=== PATIENT | female | born 1970 | race Caucasian/White ===

== ENCOUNTER → 2016-05-10 | Outpatient (CLI) | payer BC ==
[2016-05-10 19:55] LABS: Amorphous Sediment,Urine Rare /hpf; Appearance,Urine Cloudy (Clear); Bilirubin,Urine Negative (Negative); Glucose,Urine (UA) Negative (Negative); Ketones,Urine Trace (Negative); Leukocyte Esterase,Urine Moderate (Negative); Mucus,Urine Rare /hpf; Nitrite,Urine Negative (Negative); PH, Urine 5.5 (5.0-8.0); Particle Count 7702; Protein,Urine Negative (Negative); RBC,Urine 5 /hpf (0-5); Specific Gravity,Urine 1.015 (1.001-1.035); Squamous Epithelial Cell,Urine 8 /hpf (0-4); UA Billing (MACRO vs. MICRO) MICRO; Urobilinogen,Urine <2.0 mg/dL (<2.0); WBC,Urine 6 /hpf (0-5)
--- NOTE | 2016-05-11 08:59 | WWHP ---
DATE OF SERVICE: 05/10/2016 CHIEF COMPLAINT: The patient is here for her routine gynecologic exam. HPI: This is a 45-year-old G2, P2 with an LMP of 04/22/2016. Her is status post vasectomy. She says she had a UTI in February of 2016 and again in March. She says the first time it was treated, symptoms did not completely resolve. The second time she was treated in March, the symptoms did seem to completely resolve. She started having some urinary symptoms again one week ago. This consisted of urinary urgency, urinary frequency and slight odor of the urine. She denies dysuria. She says she voids immediately after sexual intercourse. She denies any vaginal discharge and denies fever. PAST MEDICAL HISTORY: Chronic hypertension, which improved with weight loss, intermittent tachycardia and seasonal allergies. MEDICATIONS: 1. Singulair 1 daily. 2. Claritin p.r.n. Allergies to COMPAZINE. PAST SURGICAL HISTORY: D&C 1995 and sinus surgery 1998. PAST TACK CLEANER HISTORY: Menses are regular every month. She has no history of STDs. SOCIAL HISTORY: She denies tobacco, alcohol, and drug use. 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 Family history is unchanged from the 2014 H&P. REVIEW OF SYSTEMS: She has lost about 18 pounds over the past 2 to 3 years. She has done this with diet and exercise. She denies respiratory, cardiac, or GI problems. PHYSICAL EXAM: Blood pressure 126/84. Height 5 feet 7 inches. Weight 172 pounds. Temperature 98.0, pulse 96. This a well-developed, well-nourished white female who is alert and oriented x3, in no acute distress. HEENT is within normal limits. NECK: Supple without mass or thyromegaly. CHEST AND LUNGS: Clear to auscultation. HEART: Regular rate and rhythm. Breasts are without mass or discharge. Axillary exam is negative adenopathy. BACK: Negative for CVA tenderness. ABDOMEN: Soft, nontender, without palpable masses. PELVIC EXAM: Normal external genitalia. Cervix and vagina reveal a small amount of mucus in the back of vagina. Cervix appears mildly inflamed. There is no cervical motion tenderness. There is no evidence of prolapse. The uterus is midposition, nongravid size and nontender. There are no palpable adnexal masses or tenderness. There is mild tenderness in the area of the bladder. Rectal exam is negative for mass or tenderness and is negative for occult blood. EXTREMITIES: Nontender. IMPRESSION: 1. A 45-year-old female with urinary urgency and frequency, probable cystitis. 2. History of recurrent urinary tract infections in the last 2 months. PLAN: 1. Pap smear was performed. 2. Self breast examination was discussed. 3. Bilateral screening mammogram will be due in 08/2016 and a slip was given to patient for this. 4. Clean-catch midstream UA with C&S has been obtained. 5. GC and Chlamydia testing from the cervix has been obtained. 6. We will empirically treat with Macrobid b.i.d. x7 days. If her symptoms are not improving, she will call and we will check the culture. 7. I have advised her to void after intercourse to see if this helps to prevent urinary tract infections. 8. If she continues to have recurrent UTIs, we can consider postcoital prophylactic antibiotics. 9. She will return in one year and p.r.n.
== END | disposition home or self-care (01) ==
LOC: WWCWWP 14:33
PROVIDERS: ATTEND Obstetrics & Gynecology
DX: R39.15 Urgency of urination (principal); R39.0 Extravasation of urine; Z11.3 Encounter for screening for infections with a predominantly sexual mode of transmission
CPT/HCPCS: 81001; 87086; 87491; 87591

== ENCOUNTER → 2016-05-27 | Outpatient (CLI) | payer BC ==
[2016-05-27 08:38] LABS: CH 31.4; CHCM 34.8; HCT 42.6 % (34.0-46.0); HDW 2.69; HGB 14.4 gm/dL (11.4-16.0); MCH 30.6 pg (25.0-35.0); MCHC 33.8 g/dL (31.0-37.0); MCV 90.7 fL (80.0-100.0); Mean Platelet Volume 6.5; RDW 13.2 % (11.5-15.5); WBC 4.4 k/uL (3.8-10.6)
[2016-05-27 08:47] LABS: Appearance,Urine Clear (Clear); Bilirubin,Urine Negative (Negative); Glucose,Urine (UA) Negative (Negative); Ketones,Urine Negative (Negative); Leukocyte Esterase,Urine Negative (Negative); Nitrite,Urine Negative (Negative); PH, Urine 6.5 (5.0-8.0); Protein,Urine Negative (Negative); Specific Gravity,Urine 1.001 (1.001-1.035); UA Billing (MACRO vs. MICRO) CHEM; Urobilinogen,Urine <2.0 mg/dL (<2.0)
[2016-05-27 08:51] LABS: ALT 32 U/L (9-52); AST 23 U/L (14-36); Alkaline Phosphatase 91 U/L (38-126); Anion Gap 11 mmol/L; Blood Urea Nitrogen 13 mg/dL (7-17); Calcium 9.3 mg/dL (8.4-10.2); Carbon Dioxide 24 mmol/L (22-30); Chloride 106 mmol/L (98-107); Cholesterol 180 mg/dL (<200); Glucose 89 mg/dL (74-99); HDL Cholesterol 66 mg/dL (40-60); Non-African American GFR(MDRD) >60 (>60 ml/min/1.73 sqM); Sodium 141 mmol/L (137-145); Total Bilirubin 0.6 mg/dL (0.2-1.3); Total Protein 7.4 g/dL (6.3-8.2); Triglycerides 51 mg/dL (<150)
== END | disposition home or self-care (01) ==
LOC: LABWHC1 08:00
PROVIDERS: ATTEND Internal Medicine
DX: Z00.00 Encounter for general adult medical examination without abnormal findings (principal); I11.9 Hypertensive heart disease without heart failure; E78.2 Mixed hyperlipidemia; R35.0 Frequency of micturition; R73.9 Hyperglycemia, unspecified
CPT/HCPCS: 36415; 80053; 80061; 81003; 83036; 84439; 84443; 85027

== ENCOUNTER → 2016-05-27 | Outpatient (CLI) | payer BC ==
--- NOTE | 2016-05-27 08:40 | US ---
EXAMINATION TYPE: US kidneys/renal and bladder DATE OF EXAM: 05/27/2016 7:37 AM COMPARISON: No previous CLINICAL HISTORY: N39.0 Frequent UTI. EXAM MEASUREMENTS: Right Kidney: 11.2 x 4.7 x 5.8 cm Left Kidney: 9.8 x 5.3 x 5.8 cm TECHNOLOGIST IMPRESSION: Right Kidney: small amount of fluid in renal pelvis, inferior pole limited by overlying bowel gas Left Kidney: wnl Bladder: wnl Bilateral Jets seen: yes There is no evidence for hydronephrosis at this point in time. No nephrolithiasis is seen. No christiano s are identified. The urinary bladder is anechoic. Bilateral ureteral jets are seen. Color flow sonography within the kidneys appears normal. Urinary bladder is sonolucent. Posterior wal l is normal. IMPRESSION: 1. Normal retroperitoneal ultrasound.
== END | disposition home or self-care (01) ==
LOC: RADUSWWP 07:35
PROVIDERS: ATTEND Internal Medicine
DX: N39.0 Urinary tract infection, site not specified (principal)
CPT/HCPCS: 76770

== ENCOUNTER → 2016-11-14 | Outpatient (CLI) | payer BC ==
--- NOTE | 2016-11-16 13:10 | MM ---
Reason for exam: screening (asymptomatic). Last mammogram was performed 8 months ago. Physical Findings: A clinical breast exam by your physician is recommended on an annual basis and results should be correlated with mammographic findings. MG Screening Mammo w CAD Bilateral CC and MLO view(s) were taken. Prior study comparison: March 14, 2016, right breast MG diagnostic mammo RT w CAD. September 08, 2015, right breast MG 3d work up w/cad RT. September 03, 2015, bilateral MG screening mammo w CAD. The breast tissue is heterogeneously dense. This may lower the sensitivity of mammography. No significant changes when compared with prior studies. ASSESSMENT: Benign, BI-RAD 2 RECOMMENDATION: Routine screening mammogram of both breasts in 1 year.
== END | disposition home or self-care (01) ==
LOC: RADMAMWWP 15:33
PROVIDERS: ATTEND Internal Medicine
DX: Z12.31 Encounter for screening mammogram for malignant neoplasm of breast (principal)

== ENCOUNTER → 2017-07-27 | Outpatient (CLI) | payer BC ==
[2017-07-27 09:32] LABS: HCT 42.4 % (34.0-46.0); HGB 14.3 gm/dL (11.4-16.0); MCH 29.6 pg (25.0-35.0); MCHC 33.6 g/dL (31.0-37.0); MCV 88.1 fL (80.0-100.0); Platelet Count 338 k/uL (150-450); RBC 4.82 m/uL (3.80-5.40); RDW 13.3 % (11.5-15.5); WBC 6.1 k/uL (3.8-10.6)
[2017-07-27 09:58] LABS: ALT 22 U/L (9-52); AST 21 U/L (14-36); Albumin 4.1 g/dL (3.5-5.0); Alkaline Phosphatase 89 U/L (38-126); Anion Gap 11 mmol/L; Blood Urea Nitrogen 10 mg/dL (7-17); Carbon Dioxide 25 mmol/L (22-30); Chloride 104 mmol/L (98-107); Cholesterol 190 mg/dL (<200); Glucose 92 mg/dL (74-99); HDL Cholesterol 78 mg/dL (40-60); LDL Cholesterol,Calculated 97 mg/dL (0-99); Potassium 4.2 mmol/L (3.5-5.1); Sodium 140 mmol/L (137-145); Total Bilirubin 0.4 mg/dL (0.2-1.3); Triglycerides 75 mg/dL (<150)
[2017-07-27 10:14] LABS: T4, Free (Free Thyroxine) 1.09 ng/dL (0.78-2.19)
== END | disposition home or self-care (01) ==
LOC: LABWHC1 08:58
PROVIDERS: ATTEND Internal Medicine
DX: Z00.00 Encounter for general adult medical examination without abnormal findings (principal); E78.2 Mixed hyperlipidemia; I11.9 Hypertensive heart disease without heart failure; K21.0 Gastro-esophageal reflux disease with esophagitis
CPT/HCPCS: 36415; 80053; 80061; 82272; 84439; 84443; 85027

== ENCOUNTER → 2018-02-19 | Outpatient (CLI) | payer BC ==
--- NOTE | 2018-02-20 10:31 | MM ---
Reason for exam: screening (asymptomatic). Last mammogram was performed 1 year and 3 months ago. Physical Findings: A clinical breast exam by your physician is recommended on an annual basis and results should be correlated with mammographic findings. MG 3D Screening Mammo W/Cad Bilateral CC and MLO view(s) were taken. Technologist: Alexandra Paris RT (R)(M) Prior study comparison: November 14, 2016, bilateral MG screening mammo w CAD. March 14, 2016, right breast MG diagnostic mammo RT w CAD. The breast tissue is heterogeneously dense. This may lower the sensitivity of mammography. There is chronic nodularity in the left breast but increased in number. ASSESSMENT: Incomplete: need additional imaging evaluation, BI-RAD 0 RECOMMENDATION: Ultrasound of the left breast. [facility] will attempt to contact patient to return for ultrasound.
== END | disposition home or self-care (01) ==
LOC: RADMAMWWP 09:13
PROVIDERS: ATTEND Internal Medicine
DX: Z12.31 Encounter for screening mammogram for malignant neoplasm of breast (principal)
CPT/HCPCS: 77063; 77067

== ENCOUNTER → 2018-03-01 | Outpatient (CLI) | payer BC ==
--- NOTE | 2018-03-02 10:51 | USB ---
Reason for exam: additional evaluation requested from abnormal screening. Physical Findings: Nurse did not find any significant physical abnormalities on exam. US Breast Workup LT Right complete breast ultrasound includes all four quadrants, the retroareolar region and axilla. Finding demonstrates several oval, cystic lesions measuring 5 x 3 x 5mm at 1 o'clock, 6 x 3 x 6mm at 10 o'clock, 5 x 2 x 4mm at 10 o'clock, 9 x 4 x 6mm at 11 o'clock and a 7 x 4 x 7mm oval, cystic lesion at 5 o'clock. These results were verbally communicated with the patient and result sheet given to the patient on 03/01/18. ASSESSMENT: Benign, BI-RAD 2 RECOMMENDATION: Return to routine screening mammogram schedule for both breasts.
== END | disposition home or self-care (01) ==
LOC: RADUSWWP 14:54
PROVIDERS: ATTEND Internal Medicine
DX: R92.8 Other abnormal and inconclusive findings on diagnostic imaging of breast (principal)

== ENCOUNTER → 2018-07-02 | Outpatient (CLI) | payer BC ==
[2018-07-02 16:10] LABS: Anion Gap 5.5 mmol/L (4.00-12.00); Calcium 9.1 mg/dL (8.7-10.3); Carbon Dioxide 24.5 mmol/L (21.6-31.8); LDL Cholesterol,Calculated 104.2 mg/dL (0.0-131.0); Potassium 4.1 mmol/L (3.5-5.5); VLDL Calculation 15.8 mg/dL (5.00-40.00)
== END ==
LOC: LABWHC1 08:49
PROVIDERS: ATTEND Internal Medicine Clinical Cardiac Electrophysiology
DX: I10 Essential (primary) hypertension (principal); E78.5 Hyperlipidemia, unspecified
CPT/HCPCS: 36415; 80048; 80061; 84443

== ENCOUNTER → 2019-10-30 | Outpatient (CLI) | payer BC ==
--- NOTE | 2019-10-31 10:42 | MM ---
Reason for exam: screening (asymptomatic). Last mammogram was performed 1 year and 8 months ago. Physical Findings: A clinical breast exam by your physician is recommended on an annual basis and results should be correlated with mammographic findings. MG 3D Screening Mammo W/Cad Bilateral CC and MLO view(s) were taken. Prior study comparison: February 19, 2018, bilateral MG 3d screening mammo w/cad. November 14, 2016, bilateral MG screening mammo w CAD. The breast tissue is heterogeneously dense. This may lower the sensitivity of mammography. No significant changes when compared with prior studies. ASSESSMENT: Benign, BI-RAD 2 RECOMMENDATION: Routine screening mammogram of both breasts in 1 year.
== END | disposition home or self-care (01) ==
LOC: RADMAMWWP 08:37
PROVIDERS: ATTEND Family Medicine
DX: Z12.31 Encounter for screening mammogram for malignant neoplasm of breast (principal)
CPT/HCPCS: 77063; 77067

== ENCOUNTER 2020-05-12 08:05 | Day surgery (SDC) | payer BC ==
[~2020-05-12 08:05] MED LIST: LACTATED RINGERS 1,000 ML IV SCH; LIDOCAINE 1% (10MG/ML) FOR IV START INTRADERMA PRN
[2020-05-12] MEDS ORDERED: LACTATED RINGERS 1,000 ML IV ONE ×2 (08:37)
[2020-05-12 08:50] VITALS: TEMP 98
[2020-05-12] MEDS ORDERED: PROPOFOL 10 MG/ML 20 ML VIAL IV ONE (08:56)
--- NOTE | 2020-05-12 08:59 | P.GSHP ---
History of Present Illness H&P Date: 05/12/20 Chief Complaint: Colon cancer screening 49-year-old female here today for colon cancer screening. Last colonoscopy 15 years ago. She may have had a polyp at that time. No family history of colon cancer. No bowel complaints. Past Medical History Past Medical History: Asthma, Hypertension Additional Past Medical History / Comment(s): "skipped heart beats at times" History of Any Multi-Drug Resistant Organisms: None Reported Past Surgical History: Cholecystectomy Additional Past Surgical History / Comment(s): sinus surgery Past Anesthesia/Blood Transfusion Reactions: No Reported Reaction Past Psychological History: No Psychological Hx Reported Smoking Status: Never smoker Past Alcohol Use History: Occasional Medications and Allergies Home Medications Medication Instructions Recorded Confirmed Type Albuterol Inhaler [Ventolin Hfa 1 puff INHALATION DAILY PRN 05/07/20 05/12/20 History Inhaler] Beclomethasone Dip 80 Mcg/Puff 1 puff INHALATION BID 05/07/20 05/12/20 History [Qvar 80 mcg] Losartan [Cozaar] 50 mg PO DAILY 05/07/20 05/12/20 History Montelukast [Singulair] 10 mg PO DAILY 05/07/20 05/12/20 History Omalizumab [Xolair] 75 mg SQ Q30D 05/07/20 05/12/20 History hydroCHLOROthiazide 25 mg PO DAILY 05/07/20 05/12/20 History Allergies Allergy/AdvReac Type Severity Reaction Status Date / Time prochlorperazine Allergy "muscle Verified 05/12/20 08:45 [From Compazine] seizes up" Surgical - Exam Vital Signs Temp Pulse Resp BP Pulse Ox 98.0 F 112 H 16 142/88 98 05/12/20 08:49 05/12/20 08:49 05/12/20 08:49 05/12/20 08:49 05/12/20 08:49 Physical exam: General: Well-developed, well-nourished HEENT: Normocephalic, sclerae nonicteric Abdomen: Nontender, nondistended Extremities: No edema Neuro: Alert and oriented Assessment and Plan (1) Colon cancer screening Narrative/Plan: Will proceed with colonoscopy at this time Current Visit: Yes Status: Acute Code(s): Z12.11 - ENCOUNTER FOR SCREENING FOR MALIGNANT NEOPLASM OF COLON SNOMED Code(s): 090543774
--- NOTE | 2020-05-12 09:14 | P.PCN ---
Date of Procedure: 05/12/20 Procedure(s) Performed: PREOPERATIVE DIAGNOSIS: Colon cancer screening, history of polyp POSTOPERATIVE DIAGNOSIS: Normal exam PROCEDURE: Colonoscopy ANESTHESIA: MAC SURGEON: Albino Pace M.D. SPECIMENS: None ENDOSCOPIC PROCEDURE: The patient was placed on the endoscopy table in the left decubitus position. The Olympus colonoscope was inserted into the anus and passed under direct visualization to the base of the cecum. The appendiceal orifice was visualized. From that point the scope was slowly withdrawn inspecting all surfaces carefully. There were no neoplastic inflammatory or polypoid lesions throughout the cecum, ascending, transverse, descending, sigmoid and rectum. There was no visible diverticulosis noted. Digital rectal examination was normal. The patient was taken to the recovery room in stable condition per anesthesia guidelines. RECOMMENDATIONS: Resume diet. Per the patient's medical history possible adenoma diagnosed 15 years ago. If that is true follow-up colonoscopy advised in 5 years. Patient unsure if that is accurate however. Normal risk follow-up would be 10 years.
[2020-05-12 09:33] VITALS: BP 118/64; PULSE 84; RESP 16
== END 2020-05-12 10:04 | disposition home or self-care (01) ==
LOC: ORWHC2ENDO 08:05
PROVIDERS: ATTEND Surgery
DX: Z12.11 Encounter for screening for malignant neoplasm of colon (principal); Z86.010 Personal history of colon polyps; I10 Essential (primary) hypertension; J45.909 Unspecified asthma, uncomplicated; Z88.8 Allergy status to other drugs, medicaments and biological substances; Z79.51 Long term (current) use of inhaled steroids; Z79.899 Other long term (current) drug therapy; Z90.49 Acquired absence of other specified parts of digestive tract
CPT/HCPCS: 81025; G0105; J2704; 45378

== ENCOUNTER → 2020-11-03 | Outpatient (CLI) | payer BC ==
--- NOTE | 2020-11-03 14:13 | MM ---
Reason for exam: screening (asymptomatic). Last mammogram was performed 1 year ago. Physical Findings: A clinical breast exam by your physician is recommended on an annual basis and results should be correlated with mammographic findings. MG 3D Screening Mammo W/Cad Bilateral CC and MLO view(s) were taken. Prior study comparison: October 30, 2019, bilateral MG 3d screening mammo w/cad. February 19, 2018, bilateral MG 3d screening mammo w/cad. There are scattered fibroglandular densities. ASSESSMENT: Negative, BI-RAD 1 RECOMMENDATION: Routine screening mammogram of both breasts in 1 year.
== END | disposition home or self-care (01) ==
LOC: RADMAMWWP 07:56
PROVIDERS: ATTEND Internal Medicine
DX: Z12.31 Encounter for screening mammogram for malignant neoplasm of breast (principal)
CPT/HCPCS: 77063; 77067

== ENCOUNTER → 2023-12-25 | Outpatient (CLI) | payer BC ==
--- NOTE | 2023-12-25 10:27 | MM ---
Reason for Exam: Screening (asymptomatic). Last mammogram was performed 3 year(s) and 2 month(s) ago. Patient History: Menarche at age 15. First Full-Term at age 25. Postmenopausal. Risk Values: Matilde 5 year model risk: 1.2%. NCI Lifetime model risk: 8.5%. Prior Study Comparison: 02/19/2018 Bilateral Screening Mammogram, [facility]. 10/30/2019 Bilateral Screening Mammogram, [facility]. 11/03/2020 Bilateral Screening Mammogram, [facility]. Tissue Density: There are scattered areas of fibroglandular density. Findings: Analyzed By CAD. There is no suspicious group of microcalcifications or new suspicious mass in either breast. Overall Assessment: Benign, BI-RAD 2 Management: Screening Mammogram of both breasts in 1 year. . Patient should continue monthly self-breast exams. A clinical breast exam by your physician is recommended on an annual basis. This exam should not preclude additional follow-up of suspicious palpable abnormalities. Note on Matilde scores and lifetime risk: 1. A Matilde score greater than 3% is considered moderate risk. If this is the case, consider specialist referral to assess eligibility for a risk reducing agent. 2. If overall lifetime risk for the development of breast cancer is 20% or higher, the patient may qualify for future screening with alternating mammogram and breast MRI. Electronically signed and approved by: Chris Srinivasan M.D. Radiologis
== END | disposition home or self-care (01) ==
LOC: RADMAMWWP 07:17
PROVIDERS: ATTEND Internal Medicine
DX: Z12.31 Encounter for screening mammogram for malignant neoplasm of breast
CPT/HCPCS: 77063; 77067